=== PATIENT | female | born 1995 | race Caucasian/White ===

== ENCOUNTER 2019-05-01 05:38 | Day surgery (SDC) | payer OTHER ==
[~2019-05-01] VITALS: Ht 162.6 cm; Wt 57.6 kg
[2019-05-01] MEDS ORDERED: LIDOCAINE 2% 100 MG/5 ML SYR IVP ONE (07:23)
[2019-05-01] MEDS ORDERED: SEVOFLURANE 250 ML BTL INH ONE (07:23)
[2019-05-01] MEDS ORDERED: PROPOFOL 200 MG/20 ML VIAL IV ONE (07:23)
[2019-05-01] MEDS ORDERED: BUPIVACAINE-MPF 0.25% 30 ML VIAL INJ ONE (07:33)
[2019-05-01] MEDS ORDERED: MIDAZOLAM 2 MG/2 ML VIAL ONE (07:40)
[2019-05-01] MEDS ORDERED: fentaNYL 0.05 MG/ML VIAL ONE (07:40)
[2019-05-01] MEDS ORDERED: HYDROmorphone 1 MG/ML AMP IVP PRN ×2 (07:55→08:35)
[2019-05-01] MEDS ORDERED: ONDANSETRON 4 MG/2 ML VIAL IVP PRN ×2 (07:55→08:35)
[2019-05-01] MEDS ORDERED: MORPHINE SULFATE 4 MG/ML SYR IV PRN (08:35)
== END 2019-05-01 10:20 | disposition home or self-care (01) ==
LOC: MDS 05:38 → MMU 06:02 → MDS 10:20
PROVIDERS: ATTEND Surgery
DX: N63.0 Unspecified lump in unspecified breast (principal); D24.2 Benign neoplasm of left breast
CPT/HCPCS: 19120; 71045; 88307; J0690; J2001; J2250; J2704; J3010; J3490; J7060; J7120; Q0092